=== PATIENT | female | born 1960 | race Caucasian/White ===

== ENCOUNTER 2022-05-27 08:56 | Day surgery (SDC) | payer OTHER, SELFPAY ==
[2022-05-27 09:21] VITALS: BP 135/86; PULSE 103; RESP 16; TEMP 35.9; O2SAT 98
[2022-05-27] MEDS: Lactated Ringers 1,000 ML 80 ML IV (09:40)
--- NOTE | 2022-05-27 09:55 | W.COLOREPORT ---
Date of service: 05/27/22 Time of Service: 11:49 Colonoscopy Report Procedure Description: Procedures performed: 1. Colonoscopy Preoperative diagnosis: Surveillance colonoscopy Postoperative diagnosis: Normal Colon Surgeon: Lashya Jasso Anesthesia: Mirella Jimenes Indication for procedure: 62-year-old woman without any symptoms, prior colonoscopy normal, no family history of colon cancer due for surveillance. Findings: Normal terminal ileum.? Normal Colon.? Normal Rectum. Surveillance/follow-up recommendations: 10 years Complications: None Blood loss: Minimal Prep: Excellent Procedure in detail: Written consent was obtained from the patient who was in agreement with the risks, benefits and indications of the procedure.? We went to the endoscopy suite and laid the patient in left lateral decubitus position.? Anesthesia was administered which was tolerated well.? A timeout was performed and when we are all in agreement we began the procedure. Digital rectal exam and visual examination was performed and within normal limits.? A well?lubricated colonoscope was advanced without difficulty all the way to the cecum identified by the ileocecal valve, and triangular folds and appendiceal orifice.? Terminal ileum was normal.? It was then slowly withdrawn.?? Retroflexion was performed in the rectum.? The findings/interventions are noted above. The scope was then removed and the patient tolerated the procedure well and was then taken back to the PACU in hemodynamically stable condition.
--- NOTE | 2022-05-27 11:13 | W.ANESPRE ---
General Info Date of Service Date Performed: 05/27/22 Height: 5 ft 2 in Weight: 52.9 kg Body Mass Index (BMI): 21.3 Surgical Procedure: Operation Date: 05/27/22 10:35 Proposed Procedure Side Surgeon p Colonoscopy Efrain Jasso MD Meds Allergies and Home Medications Allergies Allergy/AdvReac Type Severity Reaction Status Date / Time pollen extracts Allergy Unknown Verified 05/27/22 09:14 Home Medication Medication Instructions Recorded levothyroxine 100 mcg capsule 100 mcg PO DAILY 03/30/22 bisacodyl 5 mg tablet,delayed 5 mg PO ONCE colonscopy bowel prep 05/19/22 release (Dulcolax (bisacodyl)) #4 tabs polyethylene glycol 3350 17 238 g PO ONCE colonoscopy prep 05/19/22 gram/dose oral powder #238 grams diphenhydramine 25 ml 05/27/22 mg-acetaminophen 500 mg/15 mL oral solution tumeric 100 mg-dolores 150 mg-olive cap PO 05/27/22 50 mg-oreg 150 mg-caprylate capsule Current Visit Medications: Current Medications Generic Name Dose Route Start Last Admin Trade Name Freq PRN Reason Stop Dose Admin Ringer's Solution 1,000 mls @ 80 mls/hr 05/27/22 06:00 05/27/22 09:40 IV 06/25/22 23:59 80 mls/hr INFUSION LEONARD Administration IV Miscellaneous Supplies 1 each 05/27/22 06:00 Iv Access IV 06/25/22 23:59 DIRECTED LEONARD Sodium Chloride 0 ml 05/27/22 06:00 Normal Saline Flush 10 Ml Syr IV 06/25/22 23:59 PRN PRN Sodium Chloride 0 ml 05/27/22 06:00 Normal Saline 10 Ml Vial IJ 06/25/22 23:59 DIRECTED PRN Sterile Water 0 ml 05/27/22 06:00 Water,Injection,Sterile 10 Ml Vial IJ 06/25/22 23:59 DIRECTED PRN PFSH Active Problems Active Problems: Problem Status Onset Code Screening for colon cancer Z12.11 Medical History Medical History Anxiety Chronic neck pain Hearing loss Hypothyroidism Joint pain Retention of urine Sciatica Vitiligo Surgical History Surgical History History of colonoscopy (~2011) History of hysterectomy, supracervical (~2011) History of tubal ligation (~1980) Tobacco Smoking/Tobacco Use Status: Former Tobacco Use Alcohol Alcohol Intake: current Alcohol intake frequency: a few times a month Alcohol type: hard liquor Substance Use Substance use type: does not use Details: alcohol: t-14 Vital Signs and Lab Results Vital Signs Most Recent Vital Signs in EMR: Most Recent Vital Signs Temp Pulse Resp BP Pulse Ox 35.9 C L 103 H 16 135/86 98 05/27/22 09:21 05/27/22 09:21 05/27/22 09:21 05/27/22 09:21 05/27/22 09:21 Lab Results Blood Type / Crossmatch: No Data to Display Complete Blood Count: No Data to Display Complete Metabolic Panel: No Data to Display Liver Function Panel: No Data to Display Coagulation Panel: No Data to Display Cardiac Panel: No Data to Display Arterial Blood Gas: No Data to Display Venous Blood Gas: No Data to Display Pancreas Panel: No Data to Display Thyroid Panel: No Data to Display Infectious Disease: No Data to Display Blood Cultures: No Data to Display Toxicology Panel: No Data to Display Anesthesia Assessment and Plan Anesthesia History Personal History: No History of Anesthesia Complications Family History: No Family History of Anesthesia Complications Exercise Tolerance Exercise Tolerance: Metabolic Equivalents>4 Pertinent Negatives Pertinent Negatives: No Symptoms of GERD, No Major Cardiovascular Symptoms or Complaints and No Major Pulmonary Symptoms or Complaints Cardiac & Pulmonary Exam Cardiac Exam: Normal S1/S2 Heart Sounds Pulmonary Exam: Clear Bilateral Breath Sounds Implantable Cardiac Device Does patient have a Pacemaker or an ICD?: No Airway Exam Known Difficult Airway: No Mallampati Class: 2 Mouth Opening: Normal (> 3cm) Thyromental Distance: Greater than 3 cm Neck Range of Motion: Full ROM Neck Circumference: Normal Teeth Condition: Normal Dentition ASA Classification ASA Score: ASA 2 Emergency Case?: No NPO Status NPO Status: NPO Clears >2 hours, Solids >8 hours Anesthesia Plan Resuscitation Status: Full Code Anesthesia Technique: General Anesthesia Airway Planned: Natural Airway Monitors Used: Standard Monitors
[2022-05-27 11:14] VITALS: BMI 21.3
[2022-05-27 11:53] VITALS: BP 119/71; PULSE 85; RESP 16; TEMP 36.1; O2SAT 97
[2022-05-27 12:25] VITALS: BP 127/84; PULSE 88; RESP 18; TEMP 36.2; O2SAT 96
--- NOTE | 2022-05-27 12:37 | W.ANESPOSTOP ---
Postoperative Evaluation Date, Time and Location Date Performed: 05/27/22 Time Performed: 12:38 Patient Location: Day Surgery Unit Vital Signs Most Recent Imported Vital Signs: Most Recent Vital Signs Temp Pulse Resp BP Pulse Ox 36.2 C L 88 18 127/84 96 05/27/22 12:25 05/27/22 12:25 05/27/22 12:25 05/27/22 12:25 05/27/22 12:25 Pain Score Most Recent Pain Score: Most Recent Pain Score Pain Level 0 05/27/22 12:25 Assessment Mental Status: Awake (Alert & Oriented to Patient Baseline) Airway and Respiratory Function: Patent airway with normal (patient baseline) respiratory exam Cardiovascular Function: Hemodynamically Stable Hydration Status: Adequately Hydrated Nausea & Vomiting: No Nausea or Vomiting Pain: Pt. Denies Any Pain Peripheral Nerve Block: Patient did not receive a nerve block
== END 2022-05-27 12:42 | disposition home or self-care (01) ==
PROVIDERS: PCP Internal Medicine; Visit Provider Student in an Organized Health Care Education/Training Program
PROC: 0DJD8ZZ Inspection of Lower Intestinal Tract, Via Natural or Artificial Opening Endoscopic (ICD-10-PCS; CPT 45378; principal; 2022-05-27 10:30)
DX: Z12.11 Encounter for screening for malignant neoplasm of colon (principal)
CPT/HCPCS: 45378